=== PATIENT | female | born 1970 | race African-American/Black ===

== ENCOUNTER → 2017-07-18 | Day surgery (SDC) | payer BC ==
--- NOTE | 2017-07-21 10:11 | PATH ---
Surgical Pathology Report Patient Name: [facility]. Rec. #: [id number] /Age/Gender: 1970 (Age: 46) / F Account: [id number] Location: [facility] RADIOLOGY U Taken: 07/18/2017 Received: 07/18/2017 Reported: 07/21/2017 Physicians: Dionisio Laurent M.D. Specimen(s) Received RIGHT BREAST 12-1 O'CLOCK 8 CM FN Clinical History Ultrasound findings: Suspicious Final Diagnosis BREAST, RIGHT, 12-1:00, 8 CM FN, CORE BIOPSY: BENIGN BREAST TISSUE SHOWING FIBROADENOMA. Electronically Signed Rachele Mendoza M.D. Gross Description Received in formalin labeled "right breast 12:30, 8 cmfn," is a 2.0 x 1.3 x 0.3 cm aggregate of multiple jones-yellow, irregular to cylindrical portions of fibroadipose tissue admixed with blood clot. The formalin is filtered and the specimen is entirely submitted in one cassette. Time to formalin fixation: 2 minutes Total formalin fixation time: Approximately 8 hours. /07/18/2017 saudi/07/18/2017
== END | disposition home or self-care (01) ==
LOC: FRADUS-SUR 14:09
PROVIDERS: ATTEND Surgery
PROC: 0HBT3ZX Excision of Right Breast, Percutaneous Approach, Diagnostic (ICD-10-PCS; principal; 2017-07-18)
DX: D24.1 Benign neoplasm of right breast (principal); N63.12 Unspecified lump in the right breast, upper inner quadrant
CPT/HCPCS: 19083; 87899; 88305-TC; A4648; G0206-TC

== ENCOUNTER 2022-07-28 17:54 | Inpatient (IN) | payer BC ==
[2022-07-28 18:05] VITALS: BMI 33.9
[2022-07-28] MEDS ORDERED: SODIUM CHLORIDE 0.9% 500 ML INFUS.BAG IV ONE (18:17)
[2022-07-28] MEDS ORDERED: ACETAMINOPHEN 1000 MG/100 ML BAG IVPB ONE (18:17)
[2022-07-28] MEDS ORDERED: FAMOTIDINE 20 MG/50 ML IVPB 20 MG/50 ML MG IVPB ONE ×2 (18:18→18:35)
[2022-07-28] MEDS ORDERED: ONDANSETRON 4 MG/2 ML VIAL IVPUSH ONE (18:18)
[2022-07-28] MEDS ORDERED: morphine CARPU-JECT 2 MG/1 ML DISP.SYRIN IVPUSH ONE (18:26)
[2022-07-28] MEDS ORDERED: morphine SULFATE 4 MG/ML VIAL ONE (18:35)
[2022-07-28] MEDS ORDERED: ACETAMINOPHEN INJECTION 100 ML IVPB ONE (18:35)
[2022-07-28] MEDS ORDERED: ONDANSETRON 4 MG/2 ML VIAL ONE (18:35)
[2022-07-28 18:45] LABS: BASO % 0.3 % (0-2.0); LYMPH % 7.8 % (8-40); MCH 26.6 pg (25.7-33.7); MCHC 31.8 g/dl (32.0-36.0); MEAN CELL VOLUME 83.7 fl (80-96); MEAN PLT VOLUME 9.2 fl (7.5-11.1); MONO % 2.8 % (3.8-10.2); NEUT % 89.1 % (42.8-82.8); PLATELET COUNT 319 10^3/uL (134-434); RBC 5.62 M/mm3 (3.60-5.2); WHITE BLOOD COUNT 12.6 K/mm3 (4.0-10.0)
[2022-07-28 19:01] LABS: ALBUMIN 3.8 g/dl (3.4-5.0); CALCIUM 9.8 mg/dL (8.5-10.1)
[2022-07-28 19:02] LABS: BLOOD UREA NITROGEN 26.9 mg/dL (7-18)
[2022-07-28 19:04] LABS: CREATININE 2.5 mg/dL (0.55-1.3)
[2022-07-28 19:06] LABS: TOT PROT 9.1 g/dl (6.4-8.2)
[2022-07-28] MEDS ORDERED: SODIUM CHLORIDE 1,000 ML IV STA (20:11)
[2022-07-28] MEDS ORDERED: CIPROFLOXACIN 400 MG/D5W 400 MG/200 ML IVPB IVPB ONE (23:03)
[2022-07-29 00:44] LABS: EPI CELLS >36 /uL (0-25.1); HYALINE CASTS 26 /uL (0-3.1); URINE APPEARANCE CLOUDY; URINE BACTERIA 32 /uL (0-1359); URINE BILIRUBIN NEGATIVE (NEGATIVE); URINE COLOR DK YELLOW; URINE GLUCOSE (UA) NEGATIVE (NEGATIVE); URINE KETONE 1+ (NEGATIVE); URINE LEUK ESTERASE NEGATIVE (NEGATIVE); URINE NITRITE NEGATIVE (NEGATIVE); URINE PROTEIN 2+ (NEGATIVE); URINE RBC 12 /uL (0-23.9); URINE UROBILINOGEN 0.2 mg/dL (0.2-1.0); URINE WBC 34 /uL (0-25.8)
[2022-07-29] MEDS ORDERED: ACETAMINOPHEN 325 MG TABLET (FP) ONE ×2 (05:41→22:05)
[2022-07-29] MEDS ORDERED: SODIUM CHLORIDE 1,000 ML IV SCH ×2 (07:45→12:03)
[2022-07-29] MEDS ORDERED: LABETALOL HCL 100 MG TABLET (FP) ONE ×2 (08:04→22:05)
[2022-07-29] MEDS ORDERED: HEPARIN NA (PORCINE) 5,000 UNITS/ML 1ML VIAL ONE ×2 (08:04→22:05)
[2022-07-29] MEDS ORDERED: ONDANSETRON 4 MG/2 ML VIAL ONE ×2 (08:36→17:17)
[2022-07-29] MEDS: ONDANSETRON 4 MG/2 ML VIAL IVPB PRN ×2 (08:41→17:34)
[2022-07-29] MEDS ORDERED: LABETALOL HCL 200 MG TABLET (FP) PO SCH (10:00)
[2022-07-29] MEDS: HEPARIN NA (PORCINE) 5,000 UNITS/ML 1ML VIAL SQ SCH ×2 (10:27→22:21)
[2022-07-29] MEDS ORDERED: CEFTRIAXONE 1 GM/50 ML BAG ONE (12:50)
[2022-07-29] MEDS: CEFTRIAXONE 1 GM in DEXTROSE 5%-WATER - 50 ML IVPB SCH (12:58)
[2022-07-29] MEDS: LABETALOL HCL 200 MG TABLET (FP) PO SCH (22:25)
[2022-07-29] MEDS: ACETAMINOPHEN 325 MG TABLET (FP) PO PRN (22:26)
[2022-07-30] MEDS ORDERED: ONDANSETRON 4 MG/2 ML VIAL ONE ×2 (02:01→02:40)
[2022-07-30] MEDS: ONDANSETRON 4 MG/2 ML VIAL IVPB PRN ×2 (02:47→11:35)
[2022-07-30] MEDS ORDERED: ACETAMINOPHEN 325 MG TABLET (FP) ONE (05:37)
[2022-07-30] MEDS: ACETAMINOPHEN 325 MG TABLET (FP) PO PRN ×3 (05:41→21:40)
[2022-07-30 06:31] LABS: BASO % 0.5 % (0-2.0); EOS % 0.1 % (0-4.5); HEMATOCRIT 38.2 % (32.4-45.2); HEMOGLOBIN 12.3 GM/dL (10.7-15.3); LYMPH % 16.2 % (8-40); MCH 26.7 pg (25.7-33.7); MCHC 32.1 g/dl (32.0-36.0); MEAN PLT VOLUME 8.9 fl (7.5-11.1); MONO % 4.8 % (3.8-10.2); NEUT % 78.4 % (42.8-82.8); PLATELET COUNT 247 10^3/uL (134-434); RDW 15.9 % (11.6-15.6); WHITE BLOOD COUNT 9.6 K/mm3 (4.0-10.0)
[2022-07-30 06:51] LABS: CALCIUM 8.4 mg/dL (8.5-10.1)
[2022-07-30 06:55] LABS: BLOOD UREA NITROGEN 23.7 mg/dL (7-18); CREATININE 1.1 mg/dL (0.55-1.3)
[2022-07-30 07:08] LABS: ALBUMIN 2.6 g/dl (3.4-5.0); BILIRUBIN,TOTAL 0.4 mg/dL (0.2-1); TOT PROT 6.2 g/dl (6.4-8.2)
[2022-07-30] MEDS: LABETALOL HCL 200 MG TABLET (FP) PO SCH ×2 (09:16→21:39)
[2022-07-30] MEDS: HEPARIN NA (PORCINE) 5,000 UNITS/ML 1ML VIAL SQ SCH ×2 (09:16→21:38)
[2022-07-30] MEDS: CEFTRIAXONE 1 GM in DEXTROSE 5%-WATER - 50 ML IVPB SCH (09:16)
[2022-07-30] MEDS: SODIUM CHLORIDE 0.45%/POT 20 MEQ/1,000 ML INFUS.BAG IV SCH (12:52)
[2022-07-31] MEDS: SODIUM CHLORIDE 0.45%/POT 20 MEQ/1,000 ML INFUS.BAG IV SCH ×2 (04:02→10:38)
[2022-07-31] MEDS: ACETAMINOPHEN 325 MG TABLET (FP) PO PRN (04:28)
[2022-07-31 07:19] LABS: BASO % 0.2 % (0-2.0); EOS % 0.4 % (0-4.5); HEMATOCRIT 33.6 % (32.4-45.2); HEMOGLOBIN 10.9 GM/dL (10.7-15.3); LYMPH % 18.8 % (8-40); MCH 26.9 pg (25.7-33.7); MCHC 32.5 g/dl (32.0-36.0); MEAN CELL VOLUME 82.6 fl (80-96); MEAN PLT VOLUME 8.6 fl (7.5-11.1); MONO % 7.3 % (3.8-10.2); NEUT % 73.3 % (42.8-82.8); PLATELET COUNT 284 10^3/uL (134-434); RBC 4.07 M/mm3 (3.60-5.2); RDW 15.9 % (11.6-15.6)
[2022-07-31 07:34] LABS: CALCIUM 8.2 mg/dL (8.5-10.1)
[2022-07-31 07:35] LABS: ALBUMIN 2.4 g/dl (3.4-5.0)
[2022-07-31 07:38] LABS: CREATININE 0.9 mg/dL (0.55-1.3)
[2022-07-31 07:39] LABS: BILIRUBIN,TOTAL 0.4 mg/dL (0.2-1); TOT PROT 5.8 g/dl (6.4-8.2)
[2022-07-31] MEDS: CEFTRIAXONE 1 GM in DEXTROSE 5%-WATER - 50 ML IVPB SCH (10:37)
[2022-07-31] MEDS: HEPARIN NA (PORCINE) 5,000 UNITS/ML 1ML VIAL SQ SCH (10:38)
[2022-07-31] MEDS: LABETALOL HCL 200 MG TABLET (FP) PO SCH ×2 (10:38→21:55)
[2022-08-01 09:13] LABS: INR 1.29 (0.83-1.09); PROTHROMBIN TIME (PATIENT) 14.9 SEC (9.7-13.0)
[2022-08-01] MEDS: ONDANSETRON 4 MG/2 ML VIAL IVPB PRN ×2 (09:20→18:29)
[2022-08-01] MEDS: CEFTRIAXONE 1 GM in DEXTROSE 5%-WATER - 50 ML IVPB SCH (09:21)
[2022-08-01] MEDS ORDERED: MIDAZOLAM HCL 2 MG/2 ML SINGLE DOSE VIAL ONE (11:04)
[2022-08-01] MEDS: LABETALOL HCL 200 MG TABLET (FP) PO SCH ×3 (12:06→21:20)
[2022-08-01] MEDS: MIDAZOLAM HCL 2 MG/2 ML SINGLE DOSE VIAL IVPB SCH ×2 (12:17→12:34)
[2022-08-01] MEDS ORDERED: SODIUM CHLORIDE 500 ML IV ONE (12:17)
[2022-08-01] MEDS: SODIUM CHLORIDE 0.45%/POT 20 MEQ/1,000 ML INFUS.BAG IV SCH (15:30)
[2022-08-01] MEDS: HEPARIN NA (PORCINE) 5,000 UNITS/ML 1ML VIAL SQ SCH (21:20)
[2022-08-01] MEDS: ACETAMINOPHEN 325 MG TABLET (FP) PO PRN (21:36)
[2022-08-02] MEDS: ONDANSETRON 4 MG/2 ML VIAL IVPB PRN ×4 (00:29→18:43)
[2022-08-02] MEDS: CEFTRIAXONE 1 GM in DEXTROSE 5%-WATER - 50 ML IVPB SCH (10:40)
[2022-08-02] MEDS: HEPARIN NA (PORCINE) 5,000 UNITS/ML 1ML VIAL SQ SCH ×2 (10:41→22:09)
[2022-08-02] MEDS: LABETALOL HCL 200 MG TABLET (FP) PO SCH ×2 (10:41→22:08)
[2022-08-02] MEDS: SODIUM CHLORIDE 0.45%/POT 20 MEQ/1,000 ML INFUS.BAG IV SCH (11:12)
[2022-08-02] MEDS: HYDROCHLOROTHIAZIDE 25 MG TABLET (FP) PO SCH (16:14)
[2022-08-02 18:03] LABS: BASO % 0.6 % (0-2.0); EOS % 0.9 % (0-4.5); HEMATOCRIT 34.1 % (32.4-45.2); HEMOGLOBIN 10.8 GM/dL (10.7-15.3); LYMPH % 19.3 % (8-40); MCH 26.6 pg (25.7-33.7); MCHC 31.6 g/dl (32.0-36.0); MEAN PLT VOLUME 8.3 fl (7.5-11.1); MONO % 7.6 % (3.8-10.2); NEUT % 71.6 % (42.8-82.8); PLATELET COUNT 332 10^3/uL (134-434); RBC 4.06 M/mm3 (3.60-5.2); WHITE BLOOD COUNT 8.4 K/mm3 (4.0-10.0)
[2022-08-02 18:18] LABS: CALCIUM 8.2 mg/dL (8.5-10.1)
[2022-08-02 18:19] LABS: ALBUMIN 2.4 g/dl (3.4-5.0); BLOOD UREA NITROGEN 9.3 mg/dL (7-18)
[2022-08-02 18:21] LABS: CREATININE 0.8 mg/dL (0.55-1.3)
[2022-08-02 18:22] LABS: TOT PROT 5.8 g/dl (6.4-8.2)
[2022-08-02 18:24] LABS: BILIRUBIN,TOTAL 0.4 mg/dL (0.2-1)
[2022-08-03] MEDS: ONDANSETRON 4 MG/2 ML VIAL IVPB PRN ×2 (00:34→08:58)
[2022-08-03] MEDS: CEFTRIAXONE 1 GM in DEXTROSE 5%-WATER - 50 ML IVPB SCH (09:10)
[2022-08-03] MEDS: LABETALOL HCL 200 MG TABLET (FP) PO SCH (09:11)
[2022-08-03] MEDS: HEPARIN NA (PORCINE) 5,000 UNITS/ML 1ML VIAL SQ SCH ×2 (09:11→21:27)
[2022-08-03] MEDS: HYDROCHLOROTHIAZIDE 25 MG TABLET (FP) PO SCH (09:11)
[2022-08-03] MEDS: SODIUM CHLORIDE 0.45%/POT 20 MEQ/1,000 ML INFUS.BAG IV SCH (11:18)
[2022-08-03] MEDS: FAMOTIDINE 20 MG TABLET PO SCH (13:35)
[2022-08-03] MEDS: FLUCONAZOLE 200 MG/NS 100 ML IVPB SCH (13:35)
[2022-08-03] MEDS: ACETAMINOPHEN 325 MG TABLET (FP) PO PRN ×2 (17:32→23:20)
[2022-08-03] MEDS: LABETALOL HCL 100 MG TABLET (FP) PO SCH (21:27)
[2022-08-04] MEDS: ACETAMINOPHEN 325 MG TABLET (FP) PO PRN ×2 (05:05→11:03)
[2022-08-04] MEDS: ONDANSETRON 4 MG/2 ML VIAL IVPB PRN ×3 (05:05→21:18)
[2022-08-04] MEDS: HEPARIN NA (PORCINE) 5,000 UNITS/ML 1ML VIAL SQ SCH ×2 (10:36→21:17)
[2022-08-04] MEDS: CEFTRIAXONE 1 GM in DEXTROSE 5%-WATER - 50 ML IVPB SCH (10:36)
[2022-08-04] MEDS: HYDROCHLOROTHIAZIDE 25 MG TABLET (FP) PO SCH (10:36)
[2022-08-04] MEDS: FAMOTIDINE 20 MG TABLET PO SCH (10:36)
[2022-08-04] MEDS: LABETALOL HCL 100 MG TABLET (FP) PO SCH ×2 (10:36→21:17)
[2022-08-04] MEDS: SODIUM CHLORIDE 0.45%/POT 20 MEQ/1,000 ML INFUS.BAG IV SCH ×2 (11:02→13:21)
[2022-08-04] MEDS: FLUCONAZOLE 200 MG/NS 100 ML IVPB SCH (14:57)
[2022-08-04] MEDS: ACETAMINOPHEN 500 MG TABLET (FP) PO PRN (20:07)
[2022-08-04] MEDS ORDERED: ACETAMINOPHEN 325 MG TABLET (FP) PO ONE (20:38)
[2022-08-05] MEDS: SODIUM CHLORIDE 0.45%/POT 20 MEQ/1,000 ML INFUS.BAG IV SCH ×2 (06:32→10:23)
[2022-08-05] MEDS: ONDANSETRON 4 MG/2 ML VIAL IVPB PRN (06:33)
[2022-08-05] MEDS: HEPARIN NA (PORCINE) 5,000 UNITS/ML 1ML VIAL SQ SCH ×2 (10:21→21:05)
[2022-08-05] MEDS: HYDROCHLOROTHIAZIDE 25 MG TABLET (FP) PO SCH (10:22)
[2022-08-05] MEDS: FAMOTIDINE 20 MG TABLET PO SCH (10:22)
[2022-08-05] MEDS: ACETAMINOPHEN 500 MG TABLET (FP) PO PRN ×2 (10:22→21:17)
[2022-08-05] MEDS: LABETALOL HCL 100 MG TABLET (FP) PO SCH ×2 (10:22→21:05)
[2022-08-05 11:49] LABS: BASO % 0.5 % (0-2.0); EOS % 1.3 % (0-4.5); HEMATOCRIT 32.3 % (32.4-45.2); HEMOGLOBIN 10.8 GM/dL (10.7-15.3); LYMPH % 27.8 % (8-40); MCH 27.6 pg (25.7-33.7); MCHC 33.5 g/dl (32.0-36.0); MEAN CELL VOLUME 82.5 fl (80-96); MEAN PLT VOLUME 7.6 fl (7.5-11.1); MONO % 8.2 % (3.8-10.2); NEUT % 62.2 % (42.8-82.8); PLATELET COUNT 392 10^3/uL (134-434); RBC 3.91 M/mm3 (3.60-5.2); WHITE BLOOD COUNT 6.9 K/mm3 (4.0-10.0)
[2022-08-05 12:03] LABS: CALCIUM 8.3 mg/dL (8.5-10.1)
[2022-08-05 12:05] LABS: ALBUMIN 2.6 g/dl (3.4-5.0); BLOOD UREA NITROGEN 5.8 mg/dL (7-18)
[2022-08-05 12:07] LABS: CREATININE 0.9 mg/dL (0.55-1.3)
[2022-08-05 12:08] LABS: BILIRUBIN,TOTAL 0.3 mg/dL (0.2-1); TOT PROT 6.2 g/dl (6.4-8.2)
[2022-08-05] MEDS: CEFTRIAXONE 1 GM in DEXTROSE 5%-WATER - 50 ML IVPB SCH ×2 (12:22→13:08)
[2022-08-05] MEDS: FLUCONAZOLE 200 MG/NS 100 ML IVPB SCH (13:37)
[2022-08-05] MEDS: POTASSIUM CHLORIDE TABS 10 MEQ TABLET.ER (FP) PO SCH (15:33)
[2022-08-06] MEDS: ACETAMINOPHEN 500 MG TABLET (FP) PO PRN ×2 (01:25→12:00)
[2022-08-06] MEDS: ONDANSETRON 4 MG/2 ML VIAL IVPB PRN (01:43)
[2022-08-06] MEDS: HYDROCHLOROTHIAZIDE 25 MG TABLET (FP) PO SCH (10:16)
[2022-08-06] MEDS: FAMOTIDINE 20 MG TABLET PO SCH (10:16)
[2022-08-06] MEDS: HEPARIN NA (PORCINE) 5,000 UNITS/ML 1ML VIAL SQ SCH ×2 (10:16→21:39)
[2022-08-06] MEDS: POTASSIUM CHLORIDE TABS 10 MEQ TABLET.ER (FP) PO SCH (10:16)
[2022-08-06] MEDS: LABETALOL HCL 100 MG TABLET (FP) PO SCH ×2 (10:16→21:39)
[2022-08-06] MEDS: CEFTRIAXONE 1 GM in DEXTROSE 5%-WATER - 50 ML IVPB SCH (10:17)
[2022-08-06] MEDS: FLUCONAZOLE 200 MG/NS 100 ML IVPB SCH (17:04)
[2022-08-07] MEDS: ACETAMINOPHEN 500 MG TABLET (FP) PO PRN ×2 (02:37→06:42)
[2022-08-07] MEDS: NYSTATIN 100,000 UNIT/GM TOPICAL CREAM 15 GM TUBE TP SCH ×3 (06:23→21:33)
[2022-08-07 10:29] LABS: BASO % 0.6 % (0-2.0); EOS % 2.4 % (0-4.5); HEMATOCRIT 35.4 % (32.4-45.2); HEMOGLOBIN 11.4 GM/dL (10.7-15.3); LYMPH % 41.9 % (8-40); MCH 26.8 pg (25.7-33.7); MCHC 32.2 g/dl (32.0-36.0); MEAN CELL VOLUME 83.3 fl (80-96); MEAN PLT VOLUME 8.2 fl (7.5-11.1); MONO % 10.3 % (3.8-10.2); NEUT % 44.8 % (42.8-82.8); PLATELET COUNT 440 10^3/uL (134-434); RBC 4.25 M/mm3 (3.60-5.2); RDW 16.1 % (11.6-15.6); WHITE BLOOD COUNT 5.1 K/mm3 (4.0-10.0)
[2022-08-07] MEDS: LABETALOL HCL 100 MG TABLET (FP) PO SCH ×2 (10:31→21:33)
[2022-08-07] MEDS: POTASSIUM CHLORIDE TABS 10 MEQ TABLET.ER (FP) PO SCH (10:31)
[2022-08-07] MEDS: HEPARIN NA (PORCINE) 5,000 UNITS/ML 1ML VIAL SQ SCH ×2 (10:31→21:33)
[2022-08-07] MEDS: HYDROCHLOROTHIAZIDE 25 MG TABLET (FP) PO SCH (10:31)
[2022-08-07] MEDS: FAMOTIDINE 20 MG TABLET PO SCH (10:32)
[2022-08-07] MEDS: CEFTRIAXONE 1 GM in DEXTROSE 5%-WATER - 50 ML IVPB SCH (10:32)
[2022-08-07] MEDS: FLUCONAZOLE 200 MG/NS 100 ML IVPB SCH (10:32)
[2022-08-07 10:55] LABS: BLOOD UREA NITROGEN 10.8 mg/dL (7-18); CALCIUM 9.4 mg/dL (8.5-10.1)
[2022-08-07 10:57] LABS: TOT PROT 6.7 g/dl (6.4-8.2)
[2022-08-07 10:58] LABS: CREATININE 1.1 mg/dL (0.55-1.3)
[2022-08-07 11:00] LABS: BILIRUBIN,TOTAL 0.3 mg/dL (0.2-1)
[2022-08-07] MEDS ORDERED: POTASSIUM CHLORIDE TABS 20 MEQ TABLET.ER (FP) PO SCH (12:15)
[2022-08-07] MEDS: POTASSIUM CHLORIDE TABS 20 MEQ TABLET.ER (FP) PO SCH (21:33)
[2022-08-07] MEDS: ONDANSETRON 4 MG/2 ML VIAL IVPB PRN (21:55)
[2022-08-08] MEDS: LABETALOL HCL 100 MG TABLET (FP) PO SCH ×2 (11:25→21:43)
[2022-08-08 11:27] LABS: BASO % 0.9 % (0-2.0); HEMATOCRIT 36.8 % (32.4-45.2); HEMOGLOBIN 11.8 GM/dL (10.7-15.3); LYMPH % 44.9 % (8-40); MCH 26.6 pg (25.7-33.7); MEAN CELL VOLUME 83.1 fl (80-96); MEAN PLT VOLUME 8.3 fl (7.5-11.1); MONO % 9.5 % (3.8-10.2); NEUT % 42.7 % (42.8-82.8); PLATELET COUNT 436 10^3/uL (134-434); RBC 4.43 M/mm3 (3.60-5.2); RDW 15.8 % (11.6-15.6); WHITE BLOOD COUNT 4.8 K/mm3 (4.0-10.0)
[2022-08-08] MEDS: HYDROCHLOROTHIAZIDE 25 MG TABLET (FP) PO SCH (11:27)
[2022-08-08] MEDS: FAMOTIDINE 20 MG TABLET PO SCH (11:27)
[2022-08-08] MEDS: HEPARIN NA (PORCINE) 5,000 UNITS/ML 1ML VIAL SQ SCH (11:28)
[2022-08-08] MEDS: POTASSIUM CHLORIDE TABS 20 MEQ TABLET.ER (FP) PO SCH ×2 (11:28→21:43)
[2022-08-08] MEDS: NYSTATIN 100,000 UNIT/GM TOPICAL CREAM 15 GM TUBE TP SCH ×3 (11:30→21:43)
[2022-08-08 11:59] LABS: CALCIUM 8.7 mg/dL (8.5-10.1)
[2022-08-08 12:00] LABS: BLOOD UREA NITROGEN 11.4 mg/dL (7-18)
[2022-08-08 12:03] LABS: CREATININE 1.1 mg/dL (0.55-1.3)
[2022-08-08 12:05] LABS: TOT PROT 6.9 g/dl (6.4-8.2)
[2022-08-08 12:06] LABS: BILIRUBIN,TOTAL 0.2 mg/dL (0.2-1)
[2022-08-08] MEDS: CEFTRIAXONE 1 GM in DEXTROSE 5%-WATER - 50 ML IVPB SCH (12:28)
[2022-08-08] MEDS: FLUCONAZOLE 200 MG/NS 100 ML IVPB SCH (13:17)
[2022-08-08] MEDS: AMOX TR/POT CLAV 875MG/125MG TABLETS (FP) PO SCH (17:25)
[2022-08-08 22:46] VITALS: RESP 18
[2022-08-09] MEDS: AMOX TR/POT CLAV 875MG/125MG TABLETS (FP) PO SCH ×2 (08:46→18:02)
[2022-08-09] MEDS: POTASSIUM CHLORIDE TABS 20 MEQ TABLET.ER (FP) PO SCH ×2 (10:18→21:12)
[2022-08-09] MEDS: FLUCONAZOLE 100 MG TABLET (UD) PO SCH (10:18)
[2022-08-09] MEDS: HYDROCHLOROTHIAZIDE 25 MG TABLET (FP) PO SCH (10:18)
[2022-08-09] MEDS: LABETALOL HCL 100 MG TABLET (FP) PO SCH ×2 (10:18→21:12)
[2022-08-09] MEDS: FAMOTIDINE 20 MG TABLET PO SCH (10:18)
[2022-08-09] MEDS: NYSTATIN 100,000 UNIT/GM TOPICAL CREAM 15 GM TUBE TP SCH ×2 (11:15→21:13)
[2022-08-09] MEDS: ONDANSETRON 4 MG/2 ML VIAL IVPB PRN ×2 (14:28→18:02)
[2022-08-09] MEDS: HEPARIN NA (PORCINE) 5,000 UNITS/ML 1ML VIAL SQ SCH ×2 (21:11→21:19)
[2022-08-10] MEDS: AMOX TR/POT CLAV 875MG/125MG TABLETS (FP) PO SCH ×2 (08:22→17:57)
[2022-08-10 09:20] VITALS: BP 124/77; PULSE 88; TEMP 98.2
[2022-08-10] MEDS: LABETALOL HCL 100 MG TABLET (FP) PO SCH (10:21)
[2022-08-10] MEDS: HYDROCHLOROTHIAZIDE 25 MG TABLET (FP) PO SCH (10:22)
[2022-08-10] MEDS: HEPARIN NA (PORCINE) 5,000 UNITS/ML 1ML VIAL SQ SCH ×2 (10:22→11:35)
[2022-08-10] MEDS: POTASSIUM CHLORIDE TABS 20 MEQ TABLET.ER (FP) PO SCH (10:22)
[2022-08-10] MEDS: NYSTATIN 100,000 UNIT/GM TOPICAL CREAM 15 GM TUBE TP SCH (10:23)
[2022-08-10] MEDS: FLUCONAZOLE 100 MG TABLET (UD) PO SCH (10:23)
[2022-08-10] MEDS: FAMOTIDINE 20 MG TABLET PO SCH (10:23)
[2022-08-10] MEDS ORDERED: HEPARIN NA (PORCINE) 5,000 UNITS/ML 1ML VIAL SQ SCH (11:15)
== END 2022-08-10 19:31 | disposition home health service (06) | DRG 682 ==
LOC: JER 17:54 → JERBED 23:03 → J4S 07-30 08:19 → J5S 08-03 17:24
PROVIDERS: ADMIT Internal Medicine; ATTEND Internal Medicine
PROC: 0W9F30Z Drainage of Abdominal Wall with Drainage Device, Percutaneous Approach (ICD-10-PCS; principal; 2022-08-01)
DX: N17.9 Acute kidney failure, unspecified (principal); U07.1 COVID-19; K57.92 Diverticulitis of intestine, part unspecified, without perforation or abscess without bleeding; L02.211 Cutaneous abscess of abdominal wall; K56.600 Partial intestinal obstruction, unspecified as to cause; I10 Essential (primary) hypertension; E86.0 Dehydration; D72.829 Elevated white blood cell count, unspecified; E66.9 Obesity, unspecified; Z68.33 Body mass index [BMI] 33.0-33.9, adult
CPT/HCPCS: 0241U-QW; 36415; 49407; 71045-TC-FY; 74019-TC-FY; 74176-TC; 74177-TC; 80048; 80053; 81003; 83605; 83690; 85025; 85610; 86140; 86850; 86900; 86901; 87040; 87045; 87046; 87070; 87075; 87086; 87102; 87116; 87186; 87205; 87206; 87209; 87210; 87324; 87449; 93005; 93010; 99285-25; C9803-CS; J1644; J3480; Q9967; U0003; U0005

== ENCOUNTER → 2022-12-10 | Day surgery (SDC) | payer BC ==
[2022-12-05 14:49] VITALS: BMI 32.3
[~2022-12-10] MED LIST: ACETAMINOPHEN INJECTION 100 ML IVPB ONE; ALVIMOPAN 12 MG CAP PO ONE; BUPIVACAINE HCL/PF 0.25% (2.5MG/ML) 10 ML VIAL ONE; DEXAMETHASONE SOD PHOSPHATE 4 MG/1 ML VIAL ONE; ERTAPENEM SODIUM 0.5 GM in SODIUM CHLORIDE 50 ML IVPB ONE; ERTAPENEM SODIUM 1 GM VIAL ONE; HEPARIN NA (PORCINE) 5,000 UNITS/ML 1ML VIAL ONE; HYDROmorphone HCl 2 MG/ML VIAL ONE; INDOCYANINE GREEN 25 MG/10 ML VIAL IVPUSH ONE; LABETALOL HCL 20 MG/4 ML VIAL ONE; LIDOCAINE HCL 2% 100 MG/5 ML DISP.SYRIN ONE; LIDOCAINE HCL/PF 2% SDV 5ML VIAL ONE; MIDAZOLAM HCL 2 MG/2 ML SINGLE DOSE VIAL ONE; ONDANSETRON 4 MG/2 ML VIAL ONE; PROPOFOL 20 ML ONE; ROCURONIUM BROMIDE 50 MG/5 ML SYRINGE ONE; SEVOFLURANE 250 ML BTL ONE; SUGAMMADEX SODIUM 200 MG/2 ML VIAL ONE
== END | disposition home or self-care (01) ==
LOC: JASU-SURG 04:11 → J2C 04:11 → UNDOADMIN 04:11 → EDSTATUS 08:00
PROVIDERS: ATTEND Surgery
DX: Z53.8 Procedure and treatment not carried out for other reasons (principal)
CPT/HCPCS: C9803-CS; U0003; U0005

== ENCOUNTER 2022-12-12 04:01 | Inpatient (IN) | payer BC ==
[2022-12-10 19:20] VITALS: BMI 32.3
[2022-12-12] MEDS ORDERED: ERTAPENEM SODIUM 1 GM in SODIUM CHLORIDE 50 ML IVPB ONE (07:00)
[2022-12-12] MEDS ORDERED: ALVIMOPAN 12 MG CAP PO ONE (07:00)
[2022-12-12] MEDS ORDERED: ONDANSETRON 4 MG/2 ML VIAL IVPUSH PRN (07:55)
[2022-12-12] MEDS ORDERED: PROMETHAZINE HCL 25 MG/1 ML VIAL IVPB PRN (07:55)
[2022-12-12] MEDS ORDERED: oxyCODONE HCL 5 MG TABLET PO PRN ×2 (07:55)
[2022-12-12] MEDS ORDERED: ACETAMINOPHEN 1000 MG/100 ML BAG IVPB PRN (07:56)
[2022-12-12] MEDS ORDERED: LACTATED RINGERS SOLUTION 1,000 ML IV SCH (08:00)
[2022-12-12] MEDS ORDERED: HEPARIN NA (PORCINE) 5,000 UNITS/ML 1ML VIAL SQ ONE ×2 (08:16→08:43)
[2022-12-12] MEDS ORDERED: CEFOXITIN SODIUM 2 GM in DEXTROSE 5%-WATER 100 ML IVPB ONE (08:30)
[2022-12-12] MEDS ORDERED: cefOXitin SODIUM 2 GM VIAL (RESTRICTED TO ID) IVPB ONE ×3 (08:43→12:45)
[2022-12-12] MEDS ORDERED: INDOCYANINE GREEN 25 MG/10 ML VIAL IVPUSH ONE (08:47)
[2022-12-12] MEDS ORDERED: BUPIVACAINE HCL/PF 2.5 MG/ML - 30 ML VIAL IJ ONE (09:00)
[2022-12-12] MEDS: ACETAMINOPHEN 1000 MG/100 ML BAG IVPB SCH ×2 (16:00→23:22)
[2022-12-12] MEDS ORDERED: HYDROmorphone HCl 2 MG/ML VIAL IVPUSH ONE (16:33)
[2022-12-12] MEDS ORDERED: LIDOCAINE 5% TOPICAL PATCH TP ONE (16:33)
[2022-12-12] MEDS: SODIUM CHLORIDE 1,000 ML IV SCH (17:28)
[2022-12-12] MEDS: ONDANSETRON 4 MG/2 ML VIAL IVPUSH PRN (20:13)
[2022-12-12] MEDS: CEFOXITIN SODIUM 1 GM in DEXTROSE 5%-WATER - 100 ML IVPB SCH (20:15)
[2022-12-12] MEDS: IBUPROFEN 600 MG TABLET (FP) PO SCH (21:47)
[2022-12-12] MEDS ORDERED: LIDOCAINE PATCH REMOVAL MC SCH (22:00)
[2022-12-12] MEDS: HEPARIN NA (PORCINE) 5,000 UNITS/ML 1ML VIAL SQ SCH (23:19)
[2022-12-12] MEDS: LABETALOL HCL 100 MG TABLET (FP) PO SCH (23:22)
[2022-12-13] MEDS: CEFOXITIN SODIUM 1 GM in DEXTROSE 5%-WATER - 100 ML IVPB SCH (02:58)
[2022-12-13] MEDS: ACETAMINOPHEN 1000 MG/100 ML BAG IVPB SCH ×2 (05:09→09:34)
[2022-12-13] MEDS: IBUPROFEN 600 MG TABLET (FP) PO SCH ×3 (05:09→23:05)
[2022-12-13] MEDS: HEPARIN NA (PORCINE) 5,000 UNITS/ML 1ML VIAL SQ SCH ×3 (06:47→23:07)
[2022-12-13 08:47] LABS: HEMATOCRIT 31.1 % (32.4-45.2); HEMOGLOBIN 10.3 GM/dL (10.7-15.3); MCH 28.3 pg (25.7-33.7); MCHC 33.1 g/dl (32.0-36.0); MEAN CELL VOLUME 85.7 fl (80-96); MEAN PLT VOLUME 8.9 fl (7.5-11.1); PLATELET COUNT 194 10^3/uL (134-434); RBC 3.63 M/mm3 (3.60-5.2); RDW 14.4 % (11.6-15.6)
[2022-12-13 08:49] LABS: BASO % 0.2 % (0-2.0); HEMATOCRIT 31.2 % (32.4-45.2); HEMOGLOBIN 10.2 GM/dL (10.7-15.3); LYMPH % 33.3 % (8-40); MCH 28.1 pg (25.7-33.7); MCHC 32.7 g/dl (32.0-36.0); MEAN PLT VOLUME 8.8 fl (7.5-11.1); MONO % 6.5 % (3.8-10.2); PLATELET COUNT 193 10^3/uL (134-434); RBC 3.62 M/mm3 (3.60-5.2); RDW 14.7 % (11.6-15.6)
[2022-12-13 09:15] LABS: CALCIUM 8.1 mg/dL (8.5-10.1)
[2022-12-13 09:17] LABS: BLOOD UREA NITROGEN 9.2 mg/dL (7-18); CREATININE 1.2 mg/dL (0.55-1.3)
[2022-12-13 09:19] LABS: TOT PROT 5.9 g/dl (6.4-8.2)
[2022-12-13 09:23] LABS: BILIRUBIN,TOTAL 0.8 mg/dL (0.2-1)
[2022-12-13] MEDS: HYDROCHLOROTHIAZIDE 25 MG TABLET (FP) PO SCH (09:34)
[2022-12-13] MEDS: LABETALOL HCL 100 MG TABLET (FP) PO SCH ×2 (09:34→23:06)
[2022-12-13] MEDS: ONDANSETRON 4 MG/2 ML VIAL IVPUSH PRN (10:26)
[2022-12-13] MEDS ORDERED: POTASSIUM CHLORIDE TABS 10 MEQ TABLET.ER (FP) PO ONE (12:00)
[2022-12-13] MEDS ORDERED: oxyCODONE HCL 5 MG TABLET PO PRN (12:56)
[2022-12-13] MEDS: SODIUM CHLORIDE 1,000 ML IV SCH (17:56)
[2022-12-13] MEDS: ACETAMINOPHEN 500 MG TABLET (FP) PO SCH (17:56)
[2022-12-14] MEDS: ACETAMINOPHEN 500 MG TABLET (FP) PO SCH ×4 (01:55→22:39)
[2022-12-14] MEDS: IBUPROFEN 600 MG TABLET (FP) PO SCH ×2 (05:44→12:32)
[2022-12-14] MEDS: HEPARIN NA (PORCINE) 5,000 UNITS/ML 1ML VIAL SQ SCH (06:07)
[2022-12-14 08:25] LABS: BASO % 0.2 % (0-2.0); EOS % 0.4 % (0-4.5); HEMATOCRIT 32.8 % (32.4-45.2); HEMOGLOBIN 10.7 GM/dL (10.7-15.3); LYMPH % 30.1 % (8-40); MCH 28.1 pg (25.7-33.7); MCHC 32.5 g/dl (32.0-36.0); MEAN CELL VOLUME 86.4 fl (80-96); MONO % 4.8 % (3.8-10.2); NEUT % 64.5 % (42.8-82.8); PLATELET COUNT 206 10^3/uL (134-434); RDW 14.8 % (11.6-15.6); WHITE BLOOD COUNT 6.5 K/mm3 (4.0-10.0)
[2022-12-14 08:39] LABS: ALBUMIN 3.3 g/dl (3.4-5.0); CALCIUM 8.3 mg/dL (8.5-10.1)
[2022-12-14 08:40] LABS: BLOOD UREA NITROGEN 5.9 mg/dL (7-18); MAGNESIUM 2.1 mg/dL (1.8-2.4)
[2022-12-14 08:42] LABS: PHOSPHOROUS 2.1 mg/dL (2.5-4.9)
[2022-12-14 08:43] LABS: CREATININE 0.9 mg/dL (0.55-1.3)
[2022-12-14 08:44] LABS: BILIRUBIN,TOTAL 0.5 mg/dL (0.2-1); TOT PROT 6.6 g/dl (6.4-8.2)
[2022-12-14] MEDS: LABETALOL HCL 100 MG TABLET (FP) PO SCH ×2 (10:33→21:01)
[2022-12-14] MEDS: HYDROCHLOROTHIAZIDE 25 MG TABLET (FP) PO SCH (10:33)
[2022-12-14] MEDS: POTASSIUM CHLORIDE TABS 10 MEQ TABLET.ER (FP) PO SCH (10:33)
[2022-12-14] MEDS: ENOXAPARIN NA (PORCINE) 40 MG/0.4 ML DISP.SYRIN SQ SCH (10:35)
[2022-12-14] MEDS: NAPH,MB-DB/K PH,MBDB POWDER PACKET PO SCH ×2 (14:58→21:01)
[2022-12-14] MEDS ORDERED: ONDANSETRON *ODT* 4 MG TABLET SL PRN (18:41)
[2022-12-15] MEDS: ACETAMINOPHEN 500 MG TABLET (FP) PO SCH ×3 (01:00→18:10)
[2022-12-15] MEDS: ONDANSETRON 4 MG TABLET PO PRN ×2 (06:09→18:24)
[2022-12-15 08:26] LABS: BASO % 0.5 % (0-2.0); EOS % 1.6 % (0-4.5); HEMATOCRIT 30.9 % (32.4-45.2); HEMOGLOBIN 10.1 GM/dL (10.7-15.3); LYMPH % 25.2 % (8-40); MCH 27.5 pg (25.7-33.7); MCHC 32.7 g/dl (32.0-36.0); MEAN CELL VOLUME 84.2 fl (80-96); MEAN PLT VOLUME 8.4 fl (7.5-11.1); MONO % 3.9 % (3.8-10.2); NEUT % 68.8 % (42.8-82.8); PLATELET COUNT 198 10^3/uL (134-434); RBC 3.67 M/mm3 (3.60-5.2); RDW 14.7 % (11.6-15.6); WHITE BLOOD COUNT 4.5 K/mm3 (4.0-10.0)
[2022-12-15 08:46] LABS: CALCIUM 8.7 mg/dL (8.5-10.1)
[2022-12-15 08:48] LABS: ALBUMIN 3.2 g/dl (3.4-5.0); BLOOD UREA NITROGEN 6.1 mg/dL (7-18)
[2022-12-15 08:51] LABS: CREATININE 0.9 mg/dL (0.55-1.3)
[2022-12-15 08:52] LABS: BILIRUBIN,TOTAL 0.5 mg/dL (0.2-1); TOT PROT 6.7 g/dl (6.4-8.2)
[2022-12-15] MEDS: LABETALOL HCL 100 MG TABLET (FP) PO SCH ×2 (09:35→21:38)
[2022-12-15] MEDS: ENOXAPARIN NA (PORCINE) 40 MG/0.4 ML DISP.SYRIN SQ SCH (09:35)
[2022-12-15] MEDS: POTASSIUM CHLORIDE TABS 10 MEQ TABLET.ER (FP) PO SCH (09:37)
[2022-12-15] MEDS: HYDROCHLOROTHIAZIDE 25 MG TABLET (FP) PO SCH (09:38)
[2022-12-15] MEDS ORDERED: POTASSIUM CHLORIDE TABS 10 MEQ TABLET.ER (FP) PO ONE (13:45)
[2022-12-15] MEDS: oxyCODONE HCL 5 MG TABLET PO PRN (16:32)
[2022-12-15] MEDS ORDERED: NAPH,MB-DB/K PH,MBDB POWDER PACKET PO ONE (17:51)
[2022-12-15] MEDS: POTASSIUM CHLORIDE TABS 20 MEQ TABLET.ER (FP) PO SCH (21:38)
[2022-12-16] MEDS: oxyCODONE HCL 5 MG TABLET PO PRN ×2 (01:41→08:55)
[2022-12-16] MEDS: ACETAMINOPHEN 500 MG TABLET (FP) PO SCH (01:46)
[2022-12-16] MEDS ORDERED: FAMOTIDINE 20 MG TABLET PO PRN (08:49)
[2022-12-16] MEDS ORDERED: IBUPROFEN 600 MG TABLET (FP) PO PRN (08:49)
[2022-12-16] MEDS: ONDANSETRON 4 MG TABLET PO PRN (08:55)
[2022-12-16 08:56] LABS: BASO % 0.5 % (0-2.0); EOS % 2.4 % (0-4.5); HEMATOCRIT 31.7 % (32.4-45.2); HEMOGLOBIN 10.3 GM/dL (10.7-15.3); LYMPH % 31.4 % (8-40); MCH 27.2 pg (25.7-33.7); MCHC 32.5 g/dl (32.0-36.0); MEAN CELL VOLUME 83.8 fl (80-96); MEAN PLT VOLUME 8.5 fl (7.5-11.1); MONO % 5.2 % (3.8-10.2); NEUT % 60.5 % (42.8-82.8); PLATELET COUNT 211 10^3/uL (134-434); RBC 3.78 M/mm3 (3.60-5.2); RDW 14.8 % (11.6-15.6); WHITE BLOOD COUNT 4.7 K/mm3 (4.0-10.0)
[2022-12-16 08:58] VITALS: RESP 20
[2022-12-16 09:45] LABS: BLOOD UREA NITROGEN 6.4 mg/dL (7-18); CALCIUM 8.7 mg/dL (8.5-10.1)
[2022-12-16] MEDS: POTASSIUM CHLORIDE TABS 10 MEQ TABLET.ER (FP) PO SCH (09:45)
[2022-12-16] MEDS: ENOXAPARIN NA (PORCINE) 40 MG/0.4 ML DISP.SYRIN SQ SCH (09:45)
[2022-12-16] MEDS: HYDROCHLOROTHIAZIDE 25 MG TABLET (FP) PO SCH (09:45)
[2022-12-16 09:47] LABS: MAGNESIUM 1.9 mg/dL (1.8-2.4)
[2022-12-16 09:49] LABS: PHOSPHOROUS 2.5 mg/dL (2.5-4.9)
[2022-12-16 09:50] LABS: ALBUMIN 3.1 g/dl (3.4-5.0)
[2022-12-16 09:51] LABS: BILIRUBIN,TOTAL 0.5 mg/dL (0.2-1)
[2022-12-16 09:53] LABS: CREATININE 1.1 mg/dL (0.55-1.3); TOT PROT 6.7 g/dl (6.4-8.2)
[2022-12-16] MEDS: LABETALOL HCL 100 MG TABLET (FP) PO SCH (10:50)
[2022-12-16] MEDS: POTASSIUM CHLORIDE TABS 20 MEQ TABLET.ER (FP) PO SCH (10:51)
[2022-12-16 14:55] VITALS: BP 123/66; PULSE 85; TEMP 97.9
== END 2022-12-16 18:45 | disposition home health service (06) | DRG 331 ==
LOC: J2C 04:01 → J8W 17:41
PROVIDERS: ADMIT Surgery; ATTEND Internal Medicine
PROC: 8E0W4CZ Robotic Assisted Procedure of Trunk Region, Percutaneous Endoscopic Approach (ICD-10-PCS; 2022-12-12)
PROC: 0DJD8ZZ Inspection of Lower Intestinal Tract, Via Natural or Artificial Opening Endoscopic (ICD-10-PCS; 2022-12-12)
PROC: 0DTN4ZZ Resection of Sigmoid Colon, Percutaneous Endoscopic Approach (ICD-10-PCS; principal; 2022-12-12 08:00)
PROC: 0D1 Gastrointestinal System, Bypass (ICD-10-PCS; 2022-12-12 08:00)
DX: K57.32 Diverticulitis of large intestine without perforation or abscess without bleeding (principal); I10 Essential (primary) hypertension
CPT/HCPCS: 36415; 80048; 80053; 81025; 83735; 84100; 85025; 85027; 86140; 86850; 86900; 86901; 88307-TC; 94010; 94760; J1644